=== PATIENT | female | born 1950 | race Caucasian/White ===

== ENCOUNTER 2019-07-29 02:25 | Outpatient (CLI) | payer OTHER, SELFPAY ==
--- NOTE | 2019-07-29 08:15 | DI.MAMMO_ITS ---
EXAM: MAMMO SCREENING CLINICAL HISTORY: SCREENING, Z12.31,REF#[id number] TECHNIQUE: Mammograms were interpreted according to the usual protocol including computer analysis w [employer] CAD system, tomosynthesis and C-view imaging. FINDINGS: The breasts are of moderate density with fairly symmetrical distribution of fibroglandular tissue. N o dominant mass or clumped microcalcification is identified in either breast. There are dermal calci fications of the medial aspect of the right breast seen on MLO view. Examination is compared with pr evious examinations including August 2017 and there been no gross interval change in appearance in comparison with the previous studies. IMPRESSION: No specific evidence of malignancy at this time. Routine screening examinations are suggested at year ly intervals in this age group according to the ACS ACR guidelines. Category 1. Breast density, categ ory B. BI-RADS Cat 1 - Negative. Breast Density - Category B - Scattered areas of fibroglandular density.
== END 2019-07-29 02:45 ==
PROVIDERS: PCP Internal Medicine; Visit Provider Internal Medicine
DX: Z12.31 Encounter for screening mammogram for malignant neoplasm of breast (principal)
CPT/HCPCS: 77063; 77067

== ENCOUNTER 2021-10-15 01:03 | Outpatient (CLI) | payer OTHER, SELFPAY ==
--- NOTE | 2021-10-15 08:55 | DI.MAMMO_ITS ---
Exam(s) MAMMO SCREENING EXAM: MAMMO SCREENING CLINICAL HISTORY: SCREENING, Z12.39,[id number] TECHNIQUE: Mammograms were interpreted according to the usual protocol including computer analysis w [employer] CAD system, tomosynthesis and C-view imaging. COMPARISON: 2013 through 2019 FINDINGS: The breasts are composed of scattered fibroglandular densities, Breast Density category B. No suspicious masses or suspicious microcalcifications are seen. No skin thickening or abnormal axillary lymph nodes are seen. There has been no significant change from prior exams. IMPRESSION: BI-RADS Category 1, Negative mammogram Yearly screening mammography is recommended. Breast Density - Category B, scattered fibroglandular densities. A negative radiographic report should not delay biopsy if a dominant or clinically suspicious mass is present. Up to ten percent of cancers are not identified on mammography. A negative report may reinforce clinical impression. Adenosis and dense breasts may obscure an underlying neoplasm. False positive reports average 6 to 10%. Patient will receive a letter notifying them of these results.
== END 2021-10-15 01:23 ==
PROVIDERS: PCP Internal Medicine; Visit Provider Internal Medicine
DX: Z12.31 Encounter for screening mammogram for malignant neoplasm of breast (principal)
CPT/HCPCS: 77063; 77067

== ENCOUNTER 2022-06-11 14:10 | Emergency (ER) | payer OTHER, SELFPAY ==
[2022-06-11 14:14] VITALS: BP 178/90; PULSE 85; RESP 14; TEMP 36.7; O2SAT 98
--- NOTE | 2022-06-11 14:30 | DI.MRI_ITS ---
Exam(s) MR BRAIN WO EXAM: MR BRAIN WO CLINICAL HISTORY: diplopia TECHNIQUE: Multiplanar multisequence MRI of the brain was performed. COMPARISON: No exams were available for comparison FINDINGS: VENTRICLES AND EXTRA AXIAL SPACES: Normal in size and morphology for the patient's age. There is mild cerebral atrophy. MIDLINE SHIFT: None. CEREBRAL PARENCHYMA: No focus of restricted diffusion to suggest acute infarct. No space-occupying le zane identified. HEMORRHAGE: None. BRAINSTEM/CEREBELLUM: Normal. CALVARIUM: Normal. VISUALIZED PARANASAL SINUSES/MASTOIDS:Clear. [place]: Normal flow void. PITUITARY GLAND: Unremarkable. OTHER FINDINGS: None. IMPRESSION: 1. No acute intracranial process. 2. Findings were discussed with the emergency department at 4:12 p.m. on 06/11/2022. DATA REPOSITORY:
--- NOTE | 2022-06-11 15:40 | ED.GENADUL_ITS ---
Discharge Plan Disposition Patient Disposition: Home Condition: Stable Discharge Details Clinical Impression: Vision changes Primary Care Provider: Jenifer Caban ED Provider: Helene Herrera Home Meds and New Rx's Prescriptions: Continued omeprazole 20 MG capsule,delayed release(DR/EC) 20 mg PO DAILY atenolol 25 MG tablet 25 mg PO DAILY losartan 25 MG tablet 25 mg PO QAM Discharge Instructions Additional Instructions: Please follow-up with [facility] tomorrow Do not recommend driving until you are fully evaluated by ophthalmology Please return earlier should you have new or worsening complaints Please call your doctor tomorrow for follow-up as well Referrals: Jenifer Caban [Primary Care Provider] - Discharge Data Discharge Date/Time-TO BE ENTERED AT DEPARTURE: 06/11/22 16:25 Medical Decision Making <TIMOTHY Madera - Last Filed: 06/18/22 21:33> Pupils are equal round reactive to light and accommodation, her exam is benign, she has a nonfocal neurological exam overall That her with steady gait and is asymptomatic in terms of diplopia at time of my assessment She has not followed up with ophthalmology regarding this finding We talked about ordering an MRI with close outpatient reassessment with [facility], I suspect her symptoms are muscular in nature and she will need a follow-up for multiple exam, she will be placed on follow-up list for tomorrow if her MRI is within normal limits, care will be transitioned to physician monica Herrera pending MRI interpretation by radiology Medical Records Medical records reviewed: Yes I reviewed the patient's medical records. Lab Data Lab results reviewed: Yes I reviewed the patient's lab results. <Helene Herrera NP - Last Filed: 06/11/22 16:52> Sign Out No HPI <TIMOTHY Madera - Last Filed: 06/18/22 21:33> General Date/Time Provider Initiated Documentation: 06/11/22 14:16 . HPI Narrative: This 72-year-old female presents with report of double vision. She states her symptoms started yesterday. Predominantly while driving. She is unsure of whether or not its directional or an all ray on field admission. She denies a current headache. She denies any nausea or vomiting. She denies any loss of vision. She does see ophthalmology at the [place]. She denies any recent head or neck injuries. She states that she has some slightly blurred vision at this time and that it is improved if she covers the contralateral eye. She denies history of similar symptoms in the past. She denies any strength, sensation, weakness to her extremities. Related Data Home Medications Medication Instructions Recorded Confirmed atenolol 25 mg tablet 25 mg PO DAILY 06/08/13 06/08/13 losartan 25 mg tablet 25 mg PO QAM 06/08/13 06/08/13 omeprazole 20 mg capsule,delayed 20 mg PO DAILY 06/08/13 06/08/13 release Allergies Allergy/AdvReac Type Severity Reaction Status Date / Time Iodinated Contrast Media Allergy Intermediate Hives Unverified 06/08/13 15:04 General Stated Complaint: EyeProblem CARLOS: 3 Review of Systems <TIMOTHY Madera - Last Filed: 06/18/22 21:33> All systems reviewed & are unremarkable except as noted in HPI and below PFSH <TIMOTHY Madera - Last Filed: 06/18/22 21:33> All Active Problems (Updated 06/11/22 @ 15:46 by TIMOTHY Madera) Vision changes (Acute) Social History Smoking/Tobacco Use Status: Former Tobacco Use Smoking risk assessment performed?: Yes Drug use: Never Do you feel safe at home: Yes Exam <TIMOTHY Madera - Last Filed: 06/18/22 21:33> Const General: cooperative, comfortable and no acute distress Orientation: alert and oriented x3 HENMT Head: normal to inspection Eyes Periorbital: periorbital findings normal Eyelids: eyelids normal Sclera: sclerae normal Pupils: PERRL, pupils equal, not dilated, not fixed and reactive EOM: EOM intact bilaterally Direct ophthalmoscopy: anterior chamber normal Neck Other: no carotid bruit Resp Effort & Inspection: normal respiratory effort Cardio Rate: regular rate Rhythm: regular rhythm GI Inspection: normal to inspection Skin General skin exam: no rashes or lesions noted Neuro General: patient alert and patient oriented x3 Cranial Nerves: CN's II-XI intact bilaterally and tongue midline Cognition: normal cognition Speech: speech normal Gait: normal gait Sensory Exam: no sensory deficits noted Other: Negative [id number], negative heel miller, negative pronator drift Extrem General: normal to inspection Course <TIMOTHY Madera - Last Filed: 06/18/22 21:33> Vital Signs Vital signs: Vital Signs Temperature 36.7 C 06/11/22 14:14 Pulse 85 06/11/22 14:14 Respiratory Rate 14 06/11/22 14:14 Blood Pressure 178/90 H 06/11/22 14:14 Pulse Oximetry 98 06/11/22 14:14 Temperature 36.7 C 06/11/22 14:14 Temperature Source Oral 06/11/22 14:14 Pulse 85 06/11/22 14:14 Respiratory Rate 14 06/11/22 14:14 Respiratory Effort Non-Labored 06/11/22 14:55 Blood Pressure 178/90 H 06/11/22 14:14 Pulse Oximetry 98 06/11/22 14:14 Oxygen Delivery Method Room Air 06/11/22 14:14 Oxygen Flow Rate 0 06/11/22 14:14 Sign Out <TIMOTHY Madera - Last Filed: 06/18/22 21:33> Sign Out Data: Sign Out Comment: pending MRI Last updated by Jenifer Lopez PA at 06/11/22 16:12
--- NOTE | 2022-06-11 15:48 | NUR.NOTE ---
Nursing Note: Referral faxed to [facility] for tomorrow diplopia
[2022-06-11 16:19] VITALS: BP 154/84; PULSE 79; RESP 16; O2SAT 99
== END 2022-06-11 16:25 | disposition home or self-care (01) ==
PROVIDERS: Emergency Provider Nurse Practitioner Acute Care; PCP Internal Medicine
DX: H53.8 Other visual disturbances (principal); Z87.891 Personal history of nicotine dependence
CPT/HCPCS: 99284; 70551; 99282

== ENCOUNTER 2022-07-04 02:48 | Outpatient (CLI) | payer OTHER, SELFPAY ==
[2022-07-04 12:24] LABS: Abs Immature Grans 0.01 10^3/uL (0.0-0.06); Absolute Basophil Count 0.09 10^3/uL (0.0-0.2); Absolute Eosinophil Count 0.14 10^3/uL (0.0-0.7); Absolute Lymphocyte Count 1.23 10^3/uL (1.2-3.4); Absolute Monocyte Count 0.44 10^3/uL (0.1-0.8); Absolute Neutrophil Count 4.14 10^3/uL (1.2-6.7); Basophils % 1.5; Eosinophils % 2.3; HCT 41.8 % (36.0-46.0); HGB 13.8 g/dL (11.2-15.7); Immature Grans % 0.2; Lymphocytes % 20.3; MCH 30.3 pg (27.0-33.0); MCV 92 fL (80-95); MPV 10.5 fL (8.0-11.0); Monocytes % 7.3; Neutrophils % 68.4; Platelet Count 274 10^3/uL (130-400); RBC 4.55 10^6/uL (3.93-5.22); RDW 12.2 % (11.7-14.6); RDW-SD 41.5 fL; WBC 6.05 10^3/uL (4.4-10.8)
[2022-07-04 12:45] LABS: TSH (W/Ref FT4) 2.71 uIU/mL (0.36-3.74)
== END 2022-07-04 02:49 | disposition home or self-care (01) ==
LOC: LOS 02:49
PROVIDERS: PCP Internal Medicine; Visit Provider Optometrist
DX: H53.2 Diplopia (principal)
CPT/HCPCS: 36415; 83519; 84443; 85025

== ENCOUNTER 2022-10-16 00:54 | Outpatient (CLI) | payer MEDICARE, OTHER, SELFPAY ==
--- NOTE | 2022-10-16 07:00 | DI.MAMMO_ITS ---
Exam(s) MAMMO SCREENING EXAM: MAMMO SCREENING CLINICAL HISTORY: screening,z12.39 TECHNIQUE: Bilateral full field digital CC and MLO mammographic images were obtained with 3D tomosyn thesis and utilizing computer aided detection (CAD). COMPARISON: Available for comparison. FINDINGS: Masses/Architectural Distortion: None seen. Microcalcifications: No suspicious pleomorphic-type are seen. Skin Thickening/Nipple Retraction: None. IMPRESSION: 1. No significant interval change with no specific features of malignancy noted. 2. Unless there is more urgent need, screening mammography is recommended, as per [place] [employer] guidelines. BI-RADS Category 1 - Negative Breast Density - Category B - Scattered areas of fibroglandular density Breast density category C or D implies that the patient has dense breast tissue. Dense breast tissue is very common and is not abnormal but dense breast tissue can make it harder to find cancer on a ma mmogram. Also, dense breast tissue may increase their breast cancer risk. This information about the result of the mammogram report was provided to the patient to raise their awareness. Use this report when you speak with the patient about their risks for breast cancer, which includes their family hist ory. At that time, you may recommend for more screening tests (Ultrasound or MRI) as they might be us eful based on their risk. A negative radiographic report should not delay biopsy if a dominant or clinically suspicious mass is present. Up to ten percent of cancers are not identified on mammography. A negative report may reinforce clinical impression. Adenosis and dense breasts may obscure an underlying neoplasm. False positive reports average 6 to 10%. Patient will receive a letter notifying them of these results.
== END 2022-10-16 01:14 ==
LOC: DI 00:55
PROVIDERS: PCP Nurse Practitioner Family; Visit Provider Nurse Practitioner Family
DX: Z12.31 Encounter for screening mammogram for malignant neoplasm of breast (principal)
CPT/HCPCS: 77063; 77067

== ENCOUNTER → 2023-10-20 01:22 | Outpatient (CLI) | payer MEDICARE, OTHER, SELFPAY ==
--- NOTE | 2023-10-20 06:45 | DI.MAMMO_ITS ---
Exam(s) MAMMO SCREENING EXAM: MAMMO SCREENING CLINICAL HISTORY: screening,Z12.39 TECHNIQUE: Bilateral full field digital CC and MLO mammographic images were obtained with 3D tomosyn thesis and utilizing computer aided detection (CAD). COMPARISON: Available for comparison. FINDINGS: Masses/Architectural Distortion: None seen. Microcalcifications: No suspicious pleomorphic-type are seen. Skin Thickening/Nipple Retraction: None. IMPRESSION: 1. No significant interval change with no specific features of malignancy noted. 2. Unless there is more urgent need, screening mammography is recommended, as per [place] [employer] guidelines. BI-RADS Category 1 - Negative Breast Density - Category B - Scattered areas of fibroglandular density Breast density category C or D implies that the patient has dense breast tissue. Dense breast tissue is very common and is not abnormal but dense breast tissue can make it harder to find cancer on a ma mmogram. Also, dense breast tissue may increase their breast cancer risk. This information about the result of the mammogram report was provided to the patient to raise their awareness. Use this report when you speak with the patient about their risks for breast cancer, which includes their family hist ory. At that time, you may recommend for more screening tests (Ultrasound or MRI) as they might be us eful based on their risk. A negative radiographic report should not delay biopsy if a dominant or clinically suspicious mass is present. Up to ten percent of cancers are not identified on mammography. A negative report may reinforce clinical impression. Adenosis and dense breasts may obscure an underlying neoplasm. False positive reports average 6 to 10%. Patient will receive a letter notifying them of these results.
== END ==
PROVIDERS: PCP Nurse Practitioner Family; Visit Provider Nurse Practitioner Family
DX: Z12.31 Encounter for screening mammogram for malignant neoplasm of breast (principal)
CPT/HCPCS: 77063; 77067

== ENCOUNTER 2024-06-10 10:24 | Outpatient (CLI) | payer OTHER, SELFPAY ==
--- NOTE | 2024-06-10 08:00 | DI.RAD_ITS ---
Exam(s) XR HIP RT COMPLETE AP PELVIS EXAM: XR HIP RT COMPLETE AP PELVIS CLINICAL HISTORY: hip pain. TECHNIQUE: 2D digital imaging was performed. Two views COMPARISON: No exams were available for comparison FINDINGS: BONES: No acute fracture is present. No bony destructive lesion is seen. Enthesophytes at the iliac wings. JOINTS: Left hip prosthesis show satisfactory alignment. No abnormal surrounding bony lucencies. Mo derate to severe narrowing of the right hip joint space. There is spurring at the acetabulum. There are mild degenerative changes of the SI joints and pubic symphysis. Advanced degenerative changes n oted in the lower lumbar spine. SOFT TISSUE: Normal. IMPRESSION: Moderate to severe degenerative changes of the right hip. Unremarkable left hip prosthesis. DATA REPOSITORY: RADIATION DOSE DELIVERED:
== END 2024-06-10 10:25 | disposition home or self-care (01) ==
LOC: DIORS 10:24
PROVIDERS: PCP Nurse Practitioner Family; Visit Provider Physician Assistant
DX: M16.11 Unilateral primary osteoarthritis, right hip (principal)
CPT/HCPCS: 73502

== ENCOUNTER 2024-07-12 02:23 | Outpatient (CLI) | payer MEDICARE, OTHER, SELFPAY ==
[2024-07-12 15:38] LABS: HCT 41.4 % (36.0-46.0); HGB 13.5 g/dL (11.2-15.7); MCH 29.7 pg (27.0-33.0); MCHC 32.6 % (32.0-36.0); MCV 91 fL (80-95); MPV 9.5 fL (8.0-11.0); Platelet Count 251 10^3/uL (130-400); RBC 4.55 10^6/uL (3.93-5.22); RDW 12.7 % (11.7-14.6)
[2024-07-12 16:31] LABS: Anion Gap 5.2 mmol/L (3-11); BUN 20 mg/dL (7-18); CO2 29.8 mmol/L (21.0-32.0); CREATININE 0.9 mg/dL (0.55-1.02); Chloride 105 mmol/L (98-107); Estimated GFR 67.08 (mL/min/1.73m2); Glucose 89 mg/dL (74-106); Potassium 3.9 mmol/L (3.5-5.1); Sodium 140 mmol/L (136-145)
== END 2024-07-12 02:24 | disposition home or self-care (01) ==
LOC: LBO 02:23
PROVIDERS: PCP Nurse Practitioner Family; Visit Provider Student in an Organized Health Care Education/Training Program
DX: M16.11 Unilateral primary osteoarthritis, right hip (principal); Z01.818 Encounter for other preprocedural examination
CPT/HCPCS: 36415; 80048; 85027

== ENCOUNTER 2024-07-27 07:51 | Day surgery (SDC) | payer OTHER, SELFPAY ==
[2024-07-27] VITALS (31 sets, daily range): BP systolic 81–141; BP diastolic 43–88; PULSE 43–69; RESP 8–19; TEMP 36–37.1; O2SAT 93–100; BMI 31.4
--- NOTE | 2024-07-27 08:25 | W.ANESPRE ---
General Info Date of Service Date Performed: 07/27/24 Height: 5 ft 7 in Weight: 91.172 kg Body Mass Index (BMI): 31.4 Surgical Procedure: Operation Date: 07/27/24 11:05 Proposed Procedure Side Surgeon p Hip Total Hip Anterior, ACTIS Right Amadeo Macdonald MD Meds Allergies and Home Medications Allergies Allergy/AdvReac Type Severity Reaction Status Date / Time Iodinated Contrast Media Allergy Intermediate Hives Verified 07/27/24 08:49 diclofenac AdvReac Unknown Diarrhea Verified 07/27/24 08:49 mirabegron AdvReac Unknown Unknown Verified 07/27/24 08:49 chlorthalidone AdvReac Unknown Verified 07/27/24 08:49 Home Medication ?Medication ?Instructions ?Recorded omeprazole 20 mg capsule,delayed 20 mg PO DAILY 06/08/13 release amlodipine 5 mg tablet 5 mg PO DAILY 07/12/22 valsartan 320 mg tablet 320 mg PO DAILY 07/12/22 lidocaine 5 % topical patch 1 patch topical DAILY 08/07/22 metronidazole 0.75 % topical gel 1 applic topical DAILY 08/07/22 multivitamin 1 tab PO DAILY 08/07/22 atenolol 100 mg tablet 100 mg PO BID 09/09/22 atorvastatin 10 mg tablet 20 mg PO DAILY 09/09/22 calcium carbonate 600 mg PO DAILY 09/09/22 carboxymethylcellulose sodium 0.5 1 drp ophthalmic (eye) BID 09/09/22 % eye drops (Refresh Tears) Current Visit Medications: Current Medications Generic Name Dose Route Start Last Admin Trade Name Freq PRN Reason Stop Dose Admin Acetaminophen 1,000 mg 07/27/24 06:00 Acetaminophen 500 Mg Tab PO 07/27/24 23:59 PREOP ANA Celecoxib 400 mg 07/27/24 06:00 Celecoxib 200 Mg Cap PO 07/27/24 23:59 PREOP ANA Cefazolin Sodium/Dextrose 2 gm in 50 mls @ 100 mls/hr 07/27/24 06:00 Ancef Duplex IVPB 07/27/24 23:59 PREOP ANA Tranexamic Acid/Sodium Chloride 1,000 mg in 100 mls @ 600 mls/hr 07/27/24 06:00 IVPB 07/27/24 23:59 PREOP ANA Ringer's Solution 1,000 mls @ 80 mls/hr 07/27/24 08:30 IV 08/26/24 08:29 INFUSION ANA IV Miscellaneous Supplies 1 each 07/27/24 06:00 Iv Access IV 07/27/24 23:59 DIRECTED ANA Sodium Chloride 0 ml 07/27/24 06:00 Normal Saline Flush 10 Ml Syr IV 07/27/24 23:59 PRN PRN Sodium Chloride 0 ml 07/27/24 06:00 Normal Saline 10 Ml Vial IJ 07/27/24 23:59 DIRECTED PRN Sterile Water 0 ml 07/27/24 06:00 Water,Injection,Sterile 10 Ml Vial IJ 07/27/24 23:59 DIRECTED PRN PFSH Active Problems Active Problems: Problem Status Onset Code Heart murmur Acute R01.1 Osteoarthritis of right hip Chronic M16.11 Hypertension Chronic I10 Osteoarthritis Chronic M19.90 Interstitial cystitis Chronic N30.10 Rosacea Chronic L71.9 Peripheral neuropathy Chronic G62.9 GERD (gastroesophageal reflux disease) Chronic K21.9 Obesity Chronic E66.9 Bilateral primary osteoarthritis of knee Chronic M17.0 Medical History Medical History (Updated 07/27/24 @ 08:45 by René Akins RN) Diplopia (~05/2022) 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 Side - resolved except for her smile Chronic low back pain SI (sacroiliac) joint dysfunction intraarticular injection: 05/22/23 Carpal tunnel syndrome, bilateral Parathyroid adenoma Primary hyperparathyroidism Surgical History Surgical History (Updated 07/27/24 @ 08:45 by René Akins RN) H/O radiofrequency ablation (RFA) of nerve of lumbar spine (10/24/22) H/O removal of cyst (04/2019) Right side mid-back H/O removal of neck cyst Status post left hip replacement (12/29/23) Status post right knee replacement (10/21/18) S/P parathyroidectomy (1995) Hx of colonoscopy Hx of appendectomy Tobacco Smoking/Tobacco Use Status: Former Tobacco Use Passive smoking exposure: Yes Second hand exposure: Yes Alcohol Alcohol Intake: never Substance Use Substance use: Never Substance use type: does not use Vital Signs and Lab Results Vital Signs Most Recent Vital Signs in EMR: Temp Pulse Resp BP Pulse Ox 37.1 C 69 16 141/79 H 100 07/27/24 08:41 07/27/24 08:41 07/27/24 08:41 07/27/24 08:41 07/27/24 08:41 Lab Results Blood Type / Crossmatch: No Data to Display Complete Blood Count: White Blood Count 7.40 10^3/uL (4.4-10.8) 07/12/24 15:29 Red Blood Count 4.55 10^6/uL (3.93-5.22) 07/12/24 15:29 Hemoglobin 13.5 g/dL (11.2-15.7) 07/12/24 15:29 Hematocrit 41.4 % (36.0-46.0) 07/12/24 15:29 Platelet Count 251 10^3/uL (130-400) 07/12/24 15:29 Complete Metabolic Panel: Sodium 140 mmol/L (136-145) 07/12/24 15:29 Potassium 3.9 mmol/L (3.5-5.1) 07/12/24 15:29 Chloride 105 mmol/L (98-107) 07/12/24 15:29 Carbon Dioxide 29.8 mmol/L (21.0-32.0) 07/12/24 15:29 BUN 20 mg/dL (7-18) H 07/12/24 15:29 Creatinine 0.9 mg/dL (0.55-1.02) 07/12/24 15:29 Est GFR (CKD-EPI 2020) 67.08 (mL/min/1.73m2) 07/12/24 15:29 Calcium 9.0 mg/dL (8.5-10.1) 07/12/24 15:29 Glucose 89 mg/dL (74-106) 07/12/24 15:29 Liver Function Panel: No Data to Display Coagulation Panel: No Data to Display Cardiac Panel: No Data to Display Arterial Blood Gas: No Data to Display Venous Blood Gas: No Data to Display Pancreas Panel: No Data to Display Thyroid Panel: No Data to Display Infectious Disease: No Data to Display Blood Cultures: No Data to Display Toxicology Panel: No Data to Display Imaging and Studies Imaging and Studies Study information below may be from another EMR and interpreted by another provider. Please see original notes in EMR for more complete details. Echocardiogram Summary: echocardiogram from 01/25/2019 which as per read by Dr. Newton which states the following: Left ventricular systolic function is normal. Visually estimated ejection fraction equals 65%. Mitral valve is normal...Trace mitral regurgitation...Trace tricuspid regurgitation...Aortic valve is tricuspid... Mild aortic valve thickening... Mild aortic regurgitation Anesthesia Assessment and Plan Anesthesia History Personal History: Delayed Emergence Family History: No Family History of Anesthesia Complications Exercise Tolerance Exercise Tolerance: Metabolic Equivalents<4 Pertinent Negatives Pertinent Negatives: No Symptoms of GERD, No Major Cardiovascular Symptoms or Complaints, No Major Pulmonary Symptoms or Complaints and No History of CVA/TIA Cardiac & Pulmonary Exam Cardiac Exam: Normal S1/S2 Heart Sounds Pulmonary Exam: Clear Bilateral Breath Sounds Implantable Cardiac Device Does patient have a Pacemaker or an ICD?: No Airway Exam Known Difficult Airway: No Mallampati Class: 2 Mouth Opening: Normal (> 3cm) Thyromental Distance: Greater than 3 cm Neck Range of Motion: Full ROM Neck Circumference: Normal Teeth Condition: Normal Dentition ASA Classification ASA Score: ASA 3 Emergency Case?: No NPO Status NPO Status: NPO Clears >2 hours, Solids >8 hours Anesthesia Plan Resuscitation Status: Full Code Anesthesia Technique: Spinal Anesthesia Airway Planned: Natural Airway Monitors Used: Standard Monitors Preoperative Comments:: Previous total joints at [place], spinal with other hip in December 2023. Patient prefers spinal over general.
--- NOTE | 2024-07-27 08:45 | DI.RAD_ITS ---
Exam(s) XR HIP RT IN OR EXAM: XR HIP RT IN OR CLINICAL HISTORY: Ostheoarthritis Right Hip TECHNIQUE: 2D and realtime digital imaging was performed. CONTRAST MATERIAL: Refer to procedure report. COMPARISON: CR XR HIP RT COMPLETE AP PELVIS from 06/10/2024 FINDINGS: Fluoroscopy was provided for Dr. Macdonald during the performance of a right total hip arthroplasty. Please refer to the procedure report for complete details. Ka,r=3.04 mGy IMPRESSION: RADIATION DOSE DELIVERED: 0.0 0.0 0
[2024-07-27] MEDS: Acetaminophen 500 MG TAB 1000 MG PO (08:59)
[2024-07-27] MEDS: Celecoxib 200 MG CAP 400 MG PO (08:59)
[2024-07-27] MEDS: Lactated Ringers 1,000 ML 80 ML IV (09:13)
--- NOTE | 2024-07-27 10:22 | PDOC.DSDIS_ITS ---
Date of service: 07/27/24 Discharge Plan Disposition Patient Disposition: Home Condition: Good Discharge Details Reason For Visit: Right hip DJD Attending Provider: Amadeo Macdonald Primary Care Provider: Maria R Rodriguez Home Meds and New Rx's Prescriptions: New dexamethasone 4 mg tablet 4 mg PO DAILY Qty: 2 0RF Rx Instructions: Take one tablet once daily for two days oxycodone 5 mg tablet 5 mg PO Q6H PRNQty: 12 0RF Rx Instructions: Take one tablet up to every 6 hours as needed for severe postoperative pain aspirin 81 mg tablet,delayed release (DR/EC) 81 mg PO BID Qty: 60 0RF ibuprofen 600 mg tablet 600 mg PO TID PRN (Reason: pain) Qty: 90 3RF acetaminophen 500 mg tablet 1,000 mg PO Q8H PRN (Reason: pain) Qty: 90 3RF Continued carboxymethylcellulose sodium [Refresh Tears] 0.5 % drops 1 drp ophthalmic (eye) BID calcium carbonate 600 mg calcium (1,500 mg) tablet 600 mg PO DAILY atenolol 100 mg tablet 100 mg PO BID valsartan 320 mg tablet 320 mg PO DAILY amlodipine 5 mg tablet 5 mg PO DAILY multivitamin Tablet 1 tab PO DAILY metronidazole 0.75 % gel 1 applic topical DAILY lidocaine 5 % adhesive patch,medicated 1 patch topical DAILY Rx Instructions: leave on most painful area for up to 12 hrs atorvastatin 10 mg tablet 20 mg PO DAILY omeprazole 20 MG capsule,delayed release(DR/EC) 20 mg PO DAILY Discharge Instructions Additional Instructions: Total Hip Discharge Instructions Activity: The most important activity is to walk. You should try to take short walks a few times a day. You have no restrictions on movement or positioning, but do not try to force what you do. You will find some stiffness and weakness with hip flexion (lifting your knee). Do not try to strengthen this too early, continue to practice walking and stairs and this will come. - Outpatient physical therapy can be helpful to help return you to a normal gait and improve your flexibility and strength. This can start around 2 weeks. For some patients, it?s not necessary. Usually this is determined at the time of discharge or at the first post-operative visit. - You should wear the EUGENE hose on both legs for 2 weeks. Dressing: Keep the surgical dressing in place for at least one week. After the first week it may be removed and replace with light gauze and tape or nothing. It may get wet after 3 days but avoid soaking the dressing. If it gets wet, just lightly pat dry. It is important to always keep some gauze between skin folds, especially when you are sitting. Spend some time with the wound exposed when you are lying flat as the incision does wrinkle onto itself. Medications: - You should take Tylenol and an anti-inflammatory Ibuprofen as your primary pain control medications. - You have been prescribed a stronger pain medication Oxycodone for breakthrough pain, take as needed as prescribed. - You will continue your home Omeprazole to help reduce stomach acid and reflux. - You have also been prescribed Decadron to help with post-operative nausea and pain. You will take this for two days starting tomorrow. - You will be taking Aspirin 81mg twice a day for DVT prevention unless instructed otherwise. - If you have constipation you should take Colace or Miralax (both [id number]). It takes most people 3-4 days to have a bowel movement. Follow-up: 2 weeks If you have any acute concerns or questions, please do not hesitate to contact the office at [phone]. You may contact Dr. Macdonald with any questions after hours through the hospital at [phone] or on his cell phone at [phone]. Stand Alone Forms: Anesthesia Discharge Inst., Dylan Castañeda ([facility]) Referrals: Amadeo Macdonald MD [ [facility] STAFF PHYSICIAN] - 08/09/24 11:15 am Equipment/Supplies: Walker Activity:: Elevate Remove Dressings/Wound Care:: Do Not Remove Shower/Bathe:: Cover Diet:: As Tolerated Discharge Orders Discharge Orders: Discharge Order (Routine); Ordered 07/27/24 Ordered By: Callie Palacios
[2024-07-27] MEDS: ceFAZolin 2 GM/50 ML BAG IVPB (10:43)
--- NOTE | 2024-07-27 10:59 | W.PM.OP ---
Operative Note Operative Note PRE-OP DIAGNOSIS: Right Hip Osteoarthritis POST-OP DIAGNOSIS: same PROCEDURE: Right Anterior Total Hip Arthroplasty with Intraoperative Navigation SURGEON: Amadeo Macdonald UNDERGROUND SUPERVISOR: Callie Palacios ANESTHESIA TYPE: Spinal Refer to Anesthesia Record ESTIMATED BLOOD LOSS: 350 PATHOLOGY: none sent TOURNIQUET TIME: 0 COMPLICATIONS: None Patient was transported to: PACU Patient's condition: stable Implants: 1. Depuy [place] Acetabular Component, 54mm 2. Depuy Acetabular Liner, [id number] 3. Depuy Actis High Offset Collared Femoral Stem, Size 7 4. Depuy Altrx Ceramic Femoral Head, Size 36+1.5mm Indications: I have seen Amaris in clinic for symptoms of hip arthritis, confirmed with radiographic findings. She has exhausted nonoperative methods and was having significant limitations in daily function and desired better function and less pain. I discussed the technical details of a hip replacement. She had a successful hip replacement on the left side performed at the [facility]. I explained the risks of the procedure to include, but not limited to, bleeding, infection, pain, stiffness, fracture, damage to nerves and vessels, damage to muscles and tendons, loosening, instability, leg length inequality, need for repeat procedure, blood clot and cardiopulmonary demise. Despite these risks, Amaris elected to proceed. Findings: There was significant signs of arthritis throughout the hip. There was also a very large labrum which had complex, displaced tearing. Procedure Description: Amaris was greeted in the preoperative holding area where the correct side was identified and marked. The consent was reviewed with the patient and signed. The history and physical was updated. All questions were answered. She was taken back to the operating room. A spinal anesthestic was then administered. The feet were wrapped with cast padding and Coban and then placed into the boot liners and then into the boots. Care was taken to protect the skin and make sure the heels were fully down and the boots were stable. The patient was then positioned onto the HANA table. Both legs were held in a neutral position. SCDs were applied. The patient was then slid down onto a peroneal post. Prophylactic antibiotics in the form of Cefazolin were administered. 1g of Tranxemic Acid was given intravenously within 30 minutes of incision. The right leg was then prepped with Chloraprep and draped in a standard fashion. A second prep with Chloraprep was performed prior to placement of a shower-curtain type drape with Iodine impregnated skin protection. A timeout to confirm correct identity, side and site, procedure, allergies, anesthesia, and medical concerns was performed. An obliquely oriented incision was made starting lateral to the ASIS and running distal over the Tensor Fascia Helga (TFL) muscle belly toward the fibular head, approximately 10cm. The skin and soft tissue was dissected sharply, through Roger?s fascia, and to the fascia of the TFL. With the fascia and superior border of the IT band identified, the fascia was incised with a new knife just above any perforators from the IT band. The TFL muscle belly was bluntly dissected away from the fascia and moved laterally. The fat between TFL and rectus was identified to ensure the dissection was not within the TFL. Blunt dissection created space between abductors and the capsule and retractor was placed over the lateral femoral neck. The fibers of the rectus femoris tendon were identified and these were freed from the anterior capsule. A second cobra retractor was placed around the medial femoral neck. The TFL was further retracted laterally to show the deep fascia. Careful dissection through this layer identified three main crossing vessels of the lateral femoral circumflex. These were cauterized in multiple locations and then cut without any noticeable bleeding. The TFL was further released bluntly from the deep fascia to expose anterior hip capsule and fat The soft tissue orthopaedic retractor was then placed beneath the TFL and against sartorius and medial soft tissues to protect and retract the soft tissues. A T-capsulotomy was then performed starting at the superior lateral acetabulum and moving distally to the intertrochanteric ridge. These capsular flaps were tagged with a No. 1 Ethibond and elevated from within. The capsular flaps were released to the shoulder of the lateral neck and to the lesser trochanter to give excellent visualization of the proximal femur. A neck osteotomy was performed using an oscillating saw based on preoperative templates. This cut started in the shoulder and of the lateral neck and exited medially. The saw was at all times directed medially to avoid injury to the greater trochanter. Gross traction was applied to the leg and the osteotomy opened. The femoral head was removed with a corkscrew, making sure to protect the TFL on its exit. Traction was released after head removal. This was measured on the back table to determine the starting reamer size. Portions of the rectus obscuring visualization were minimally elevated off the superior acetabulum. An anterior retractor was placed over the anterior wall between capsule and labrum and attached to the Gripper retraction system. The labrum was quite large and the superior portion was torn in and displaced. The femur was rotated to 90 degrees and medial capsule was fully released until the lesser trochanter was palpable and visible; the femur was returned to 30 degrees. A posterior retractor was placed similarly between capsule and labrum. This provided excellent visualization. The contents of the cotyloid fossa were removed with electrocautery and the labrum was removed with a knife. There was a notable floor osteophyte. There was significant chondromalacia of the superior acetabulum. Acetabular reaming began with a 50mm reamer. This first reaming was directed anterior to posterior and medial to get down to the true floor. This was inspected and reamed until the true floor was reached. The anterior retractor was then released and entry and exit was provided by traction on the capsular flaps. I then reamed sequentially up to a 54mm reamer where good fit was obtained. The larger reamers were oriented based on anatomical reference of the anterior and lateral santos to ensure proper abduction and anteversion. Positioning and size was confirmed with the fluoroscopy. A 54mm Depuy [place] acetabular component was selected. The acetabulum was reamed around the periphery with the selected acetabular size to prevent a rim fit. The deep tissues were irrigated. The acetabular component was then impacted in a position of about 40-45 degrees of abduction and 15-20 degrees of anteversion, using the patient?s anatomy as the ultimate landmark. Fluoroscopy was used to confirm this. There was excellent neurodiagnostic technologist of the acetabular component and the inserting handle was removed. The acetabular liner, Depuy [id number] polyethylene liner, was inserted and lined up with the tines of the acetabular component. There was no soft tissue interposition. The liner was then impacted into position and confirmed to be well-seated. A portion of the chuyita-articular cocktail was then injected around the acetabulum into the capsule and periosteum. This cocktail consisted of 123mg of Ropivacaine, 0.25mg of Epinephrine, 0.04mg of Clonidine, and 15mg of Ketorolac, diluted to 50cc. The leg was rotated to 120 degrees. Any remaining medial capsule was released until the lesser trochanter was easily palpable. A retractor was placed medially. The lateral capsule was further released into the shoulder to allow access to the greater trochanter. A Molina retractor was placed over the greater trochanter which allowed the trochanter to flip in front of the capsule for excellent exposure. The leg was brought down into maximal extension and 20 degrees of adduction while ensuring there was no impingement on the acetabulum. Any remnant capsule within the trochanter was released. Piriformis and obturator externis were identified and protected. There was excellent access to the proximal femur. The lateral neck remnant was removed with a rongeur. A blunt canal probe was used to identify the canal and trajectory for later broaching. A box osteotome initiated the broach course. A small curved rasp and a curved curette were used to work laterally. Broaching then began with a starter Actis broach. This was inserted manually around the trochanter and into the canal before mallet blows. The broach was seated to a few millimeters below the cut level based on the neck cut and the preoperative template. Sequential broaching was continued with the [employer] pneumatic broaching device until a tight fit was obtained with good rotational control of the femur. A trial high offset neck was inserted along with a +1.5 trial head. The leg was brought out of extension and adduction and then reduced with traction and internal rotation. The leg was stable anteriorly in a position of 30 degrees of extension and 90 degrees of external rotation. Fluoroscopy was used to ensure there was no fracture and the stem was seated well. Leg lengths were checked with an AP pelvis and pelvic reference points. [employer] navigation system was used to confirm appropriate positioning and leg length and offset. This overcorrected offset and thus the stem was advanced an additional 4mm. Once content with the desired offset and leg lengths, the leg was brought back into extension, external rotation and adduction. The periosteum and surrounding tissue was injected with remaining portion of the chuyita-articular cocktail. The proximal femur was irrigated as well as the deep tissues. The Depuy Actis High Offset collared stem, size 7, was then manually inserted into the proximal femur making sure to control rotation. It was then malleted into position with light blows, giving breaks to allow bone expansion and decrease risk of fracture. The selected Depuy Altrx Ceramic Head, size 36+5mm, was then placed onto the clean and dry trunnion and secured with impaction onto the tapered fit. The leg was brought back out of extension and adduction and reduced with traction and internal rotation. Stability was confirmed with no shuck at 90 degrees of external rotation and 30 degrees of extension. No impingement through range of motion arc. Final x-ray images were obtained with fluoroscopy to confirm adequate positioning and no intraoperative fracture. The deep tissues were thoroughly irrigated with Surgiphor, betadine solution. This was allowed to sit in the wound for 3 minutes before being thoroughly irrigated out with normal saline. The capsule was then reapproximated with the previously placed Ethibond sutures. The TFL fascia was finally closed with a No. 2 Stratafix, barbed suture. Deep tissues were then reapproximated with 0 Vicryl and a running 2-0 Vicryl. The skin was closed with a running 4-0 Monocryl in a subcuticular fashion. This was reinforced with skin glue. A Mepilex silver dressing was applied. At the end of the case, all counts were correct. Amaris was transferred to the hospital bed without difficulty and suffering no apparent complication. Amaris has a good prognosis. Physical therapy will start today and without restrictions, weight-bearing as tolerated. Aspirin 81mg BID will be used for DVT prophylaxis. Date of Procedure: 07/27/24
[2024-07-27] MEDS: TRANEXAMIC ACID/SOD. CHL. 1,000 MG/100 ML BAG 600 MG IVPB (11:05)
[2024-07-27] MEDS: fentaNYL 100 MCG/2 ML VIAL IVP ×3 (12:48→13:07)
--- NOTE | 2024-07-27 13:43 | W.ANESPOSTOP ---
Postoperative Evaluation Date, Time and Location Date Performed: 07/27/24 Time Performed: 13:43 Patient Location: Day Surgery Unit Vital Signs Most Recent Imported Vital Signs: Most Recent Vital Signs Temp Pulse Resp BP Pulse Ox 36 C L 54 L 16 115/66 97 07/27/24 13:21 07/27/24 13:21 07/27/24 13:21 07/27/24 13:21 07/27/24 13:21 Pain Score Most Recent Pain Score: Most Recent Pain Score Pain Level 0 07/27/24 13:21 Assessment Mental Status: Awake (Alert & Oriented to Patient Baseline) Airway and Respiratory Function: Patent airway with normal (patient baseline) respiratory exam Cardiovascular Function: Hemodynamically Stable Hydration Status: Adequately Hydrated Nausea & Vomiting: No Nausea or Vomiting Pain: Pain is tolerable per patient Peripheral Nerve Block: Patient did not receive a nerve block
--- NOTE | 2024-07-27 15:11 | PT.INIE ---
PT Notes Visit Reasons: Right hip DJD Physical Therapy Day Surgery Initial Evaluation Date: 07/27/2024 Referring Doctor: Dr. Torres Hyatt PT Orders: PT CONSULT: Status post Ortho surgery Precautions: WBAT RLE,TEDs x 2 weeks Patient Profile/Admitting Diagnosis: Patient is 74-year-old female presenting status post elective right NARENDRA under spinal anesthesia. Postop uncomplicated. PMHX: OA bilateral knees,heart murmur, hypertension, OA, interstitial cystitis, rosacea, peripheral neuropathy, GERD, obesity Social History/Home Situation: Patient resides alone single-family home with 2 steps with rail on left to enter home. Patient has laundry in her basement with railing on the left. Patient independent with ADLs, ambulation without device, homemaking, meal prep, medication management, shopping. Son will be present and provide assistance as needed initially on discharge Equipment Owned/DME: Multiple FWW, 3 sets of crutches, elevated toilet height, tub bench, grab bars near shower Subjective: Patient reports she feels well but is noticing she is forgetting some things that were just told to her . Stating it is a lot of information at 1 time. Objective: [] General Observation: Patient presents semireclined on stretcher with ice to right hip eating lunch: Son present patient agreeable to participate in evaluation Mental Status: Alert and oriented x 4, slight confusion/decreased short-term memory as noted by patient asking 3 times what medication she took Pain: 4/10 right hip after medicated ROM: [] Right Upper Extremity: Within normal limits Left Upper Extremity: Within normal limits Right Lower Extremity: Within normal limits Left Lower Extremity: Within normal limits Strength: Right Upper Extremity: [] 5/5 Left Upper Extremity: 5/5 Right Lower Extremity: Hip flexion: 3 -/5; hip abduction: 3 -/5; hip extension: 3 -/5; knee extension: 3/5; knee flexion: 3 -/5 ankle DF: 3/5 ; ankle PF: 3/5 Left Lower Extremity: Grossly 4/5 Sensation: Intact bilateral lower extremity Bed Mobility/Transfers: Supine to sit supervision Sit to stand supervision with cues for safe hand placement Stand to sit supervision with cues for safe hand placement Bed to chair supervision with cues for safe approach with FWW Gait: Ambulates with FWW with supervision 150 feet x 1,35 feet x 2 level surfaces including turns. Patient demonstrates hip hike and circumduction to advance right lower extremity. Patient demonstrates decreased right knee flexion. Early heel off and decreased hip extension Stairs: 3 steps with left railing ascending with contact-guard assist and cues for sequence. Balance: Static Sitting: Normal Dynamic Sitting: Good Static Standing: Good Dynamic Standing: Fair plus Special Tests: [] Mobility Limitations Standardized Measure [] [facility] AM-PAC 6 clicks Basic Mobility Inpatient Short Form: [] Raw Score: 22 CMS Score: 20.91% Informed Consent/Education: Patient instructed in purpose of PT consult. Packet containing NARENDRA exercise protocol has been given to patient. Education and training on initial set of exercises that can be done at home have been completed with patient. Treatment: Therapeutic activity 62213: Patient and son participated in stair training transfers of low surfaces with 1 armrest to simulate on and off couch within home patient demonstrate ability to perform tasks with supervision and cues for hand placement when FWW is directly in front of her. Son demonstrates ability to provide contact-guard assist on stairs with left railing ascending. Assessment: Patient is a 74-year-old female presents with clinical signs and symptoms consistent with current/admitting diagnoses that have resulted to mobility limitations, gait instability, generalized weakness, and impairment of motor control as demonstrated by the following impairment level findings: 1. Decreased strength to right hip major muscle groups 2. Impaired standing balance 3. Limitation of joint range of motion in right hip Impairments are contributing to the following functional limitations: 1. Inability to safely ambulate without assistive device 2. Increase completion time for mobility ADL performance 3. Increased fall risk Patient is assessed as a moderate complexity based on the following: History: 74-year-old female with impairment level findings, functional limitations, and past medical history as indicated above Examination: Demonstrable impairment in strength, balance, and mobility level with underlying impairments and functional limitations as documented above Presentation: Evolving Decision Making: Moderate Goals: N/A. Plan of Care/Treatment Plan: N/A. DISCHARGE RECOMMENDATIONS: Home with home exercise program and possible need for outpatient PT to be discussed after first follow-up with surgeon TREATMENT CODE/TIME: 63108 x 20 minutes for 1 unit, 76091 x 20 minutes for 1 unit/[id number] Thank you for the opportunity to participate in the care of this patient. Clementina Tucker PT [facility]
== END 2024-07-27 15:09 | disposition home or self-care (01) ==
PROVIDERS: PCP Nurse Practitioner Family; Visit Provider Student in an Organized Health Care Education/Training Program
PROC: (CPT 27130; principal; 2024-07-27 10:45)
DX: M16.11 Unilateral primary osteoarthritis, right hip (principal); I10 Essential (primary) hypertension; K21.9 Gastro-esophageal reflux disease without esophagitis; E66.9 Obesity, unspecified
CPT/HCPCS: 27130; 20985; 97162; 97530; 73501; C1776; J0690; J1100; J2250; J2371; J2401; J2405; J2704; J3010

== ENCOUNTER 2024-08-09 13:51 | Outpatient (CLI) | payer OTHER, SELFPAY ==
--- NOTE | 2024-08-09 11:30 | DI.RAD_ITS ---
Exam(s) XR HIP RT COMPLETE AP PELVIS EXAM: XR HIP RT COMPLETE AP PELVIS CLINICAL HISTORY: 1ST POST OP S/P R NARENDRA. TECHNIQUE: 2D digital imaging was performed. Two views COMPARISON: CR XR HIP RT COMPLETE AP PELVIS from 06/10/2024 XA XR HIP RT IN OR from 07/27/2024 FINDINGS: BONES: No acute fracture is present. No bony destructive lesion is seen. JOINTS: No dislocation present. Stable alignment of bilateral hip prostheses. SOFT TISSUE: Normal. IMPRESSION: Stable appearance of bilateral hip prostheses. DATA REPOSITORY: RADIATION DOSE DELIVERED:
== END 2024-08-09 13:52 | disposition home or self-care (01) ==
LOC: DIORS 13:52
PROVIDERS: PCP Nurse Practitioner Family; Visit Provider Student in an Organized Health Care Education/Training Program
DX: Z96.641 Presence of right artificial hip joint (principal); Z47.1 Aftercare following joint replacement surgery
CPT/HCPCS: 73502

== ENCOUNTER 2024-08-16 16:27 | Outpatient (CLI) | payer MEDICARE, OTHER, SELFPAY ==
--- NOTE | 2024-08-16 10:15 | DI.US_ITS ---
Exam(s) US SOFT TISS ABD WALL/LOW BACK EXAM: US SOFT TISS ABD WALL/LOW BACK CLINICAL HISTORY: abscess vs lipoma,LUMP SKIN OF BACK, R22.2. TECHNIQUE: Ultrasound was performed using standard protocol. COMPARISON: No exams were available for comparison FINDINGS: Sonographic assessment utilizing grayscale and color Doppler imaging was performed and targeted to th e area of clinical concern. There is a heterogeneous mass in the subcutaneous tissues along the right back in the area of palpabl e concern. It measures 2.8 cm x 1.8 cm x 2.7 cm. There is posterior acoustic enhancement. There is no internal blood flow. IMPRESSION: The of concern corresponds to a 2.8 x 1.8 x 2.7 cm heterogeneous mass in the subcutaneous tissues. T he increased through transmission can be seen with fluid containing structure such as an abscess rich alexandre some solid masses may also show this type of enhancement. CT scan should be considered for furth er evaluation. DATA REPOSITORY:
== END 2024-08-16 16:47 ==
PROVIDERS: PCP Nurse Practitioner Family; Visit Provider Nurse Practitioner Family
DX: R22.2 Localized swelling, mass and lump, trunk (principal)
CPT/HCPCS: 76705

== ENCOUNTER 2024-08-23 15:52 | Outpatient (REF) | payer MEDICARE, SELFPAY | END 2024-08-23 15:53 | disposition home or self-care (01) | LOC: LBN 15:52 | PROVIDERS: PCP Nurse Practitioner Family; Visit Provider Nurse Practitioner Family | DX: L02.91 Cutaneous abscess, unspecified (principal); L98.9 Disorder of the skin and subcutaneous tissue, unspecified | CPT/HCPCS: 87070; 87205 ==

== ENCOUNTER → 2024-08-24 08:46 | Outpatient (BNVA) | payer MEDICARE, OTHER, SELFPAY | PROVIDERS: PCP Nurse Practitioner Family; Referring Provider Nurse Practitioner Family; Visit Provider Physical Therapy Assistant | DX: L02.212 Cutaneous abscess of back [any part, except buttock and flank] (principal); Z87.2 Personal history of diseases of the skin and subcutaneous tissue | CPT/HCPCS: 10060; 99214 ==

== ENCOUNTER → 2024-08-25 11:28 | Outpatient (BNVA) | payer MEDICARE, SELFPAY | PROVIDERS: PCP Nurse Practitioner Family; Referring Provider Nurse Practitioner Family; Visit Provider Physical Therapy Assistant | DX: L02.212 Cutaneous abscess of back [any part, except buttock and flank] (principal) | CPT/HCPCS: 99213 ==

== ENCOUNTER → 2024-08-26 07:52 | Outpatient (BNVA) | payer MEDICARE, SELFPAY | PROVIDERS: PCP Nurse Practitioner Family; Referring Provider Nurse Practitioner Family; Visit Provider Physical Therapy Assistant | DX: Z48.817 Encounter for surgical aftercare following surgery on the skin and subcutaneous tissue (principal); L02.212 Cutaneous abscess of back [any part, except buttock and flank] ==

== ENCOUNTER → 2024-08-27 10:30 | Outpatient (BNVA) | payer MEDICARE, SELFPAY | PROVIDERS: PCP Nurse Practitioner Family; Referring Provider Nurse Practitioner Family; Visit Provider Physical Therapy Assistant | DX: Z48.817 Encounter for surgical aftercare following surgery on the skin and subcutaneous tissue (principal); L02.212 Cutaneous abscess of back [any part, except buttock and flank] ==

== ENCOUNTER → 2024-08-31 09:33 | Outpatient (BNVA) | payer MEDICARE, SELFPAY | PROVIDERS: PCP Nurse Practitioner Family; Referring Provider Nurse Practitioner Family; Visit Provider Physical Therapy Assistant | DX: Z48.817 Encounter for surgical aftercare following surgery on the skin and subcutaneous tissue (principal); L02.212 Cutaneous abscess of back [any part, except buttock and flank] ==

== ENCOUNTER → 2024-09-03 08:34 | Outpatient (BNVA) | payer MEDICARE, OTHER, SELFPAY | PROVIDERS: PCP Nurse Practitioner Family; Referring Provider Nurse Practitioner Family; Visit Provider Physical Therapy Assistant | DX: L02.212 Cutaneous abscess of back [any part, except buttock and flank] (principal) | CPT/HCPCS: 97605; 99213 ==

== ENCOUNTER → 2024-09-10 08:11 | Outpatient (BNVA) | payer MEDICARE, OTHER, SELFPAY | PROVIDERS: PCP Nurse Practitioner Family; Referring Provider Nurse Practitioner Family; Visit Provider Physical Therapy Assistant | DX: L02.212 Cutaneous abscess of back [any part, except buttock and flank] (principal) | CPT/HCPCS: 99213 ==

== ENCOUNTER → 2024-09-13 08:41 | Outpatient (BNVA) | payer MEDICARE, OTHER, SELFPAY | PROVIDERS: PCP Nurse Practitioner Family; Referring Provider Nurse Practitioner Family; Visit Provider Physical Therapy Assistant | DX: L02.212 Cutaneous abscess of back [any part, except buttock and flank] (principal) | CPT/HCPCS: 99212 ==

== ENCOUNTER → 2024-09-17 09:31 | Outpatient (BNVA) | payer MEDICARE, OTHER, SELFPAY | PROVIDERS: PCP Nurse Practitioner Family; Referring Provider Nurse Practitioner Family; Visit Provider Physical Therapy Assistant | DX: L02.212 Cutaneous abscess of back [any part, except buttock and flank] (principal) | CPT/HCPCS: 99213 ==

== ENCOUNTER 2024-09-28 00:47 | Outpatient (CLI) | payer MEDICARE, OTHER, SELFPAY ==
--- NOTE | 2024-09-28 10:45 | DI.MRI_ITS ---
Exam(s) MR LUMBAR SPINE WO EXAM: MR LUMBAR SPINE WO CLINICAL HISTORY: Spinal stenosis,lumbar,M48.061. TECHNIQUE: Multiplanar multisequence MRI of the Lumbar spine was performed. COMPARISON: No exams were available for comparison FINDINGS: Bones: The last intervertebral disc space is designated the L5/S1 level for the numbering purpose of this examination. The vertebral body heights are well maintained. There is a right convex scoliosis of the lumbar spine. There are mild degenerative endplate signal changes. Endplate osteophytes are seen at multiple levels of the lumbar spine. There is disc space narrowing from L1-2 through L5-S1. Cord: The conus tip ends at the T12 level. It is of normal size and signal intensity. T12-L1: No disc herniations or bulges are present. No central spinal canal or neural foraminal stenos is. L1-2: There is a mild diffuse disc bulge. No significant central spinal canal or right neural forami nal stenosis. There is mild left neural foraminal stenosis. L2-3: There is a diffuse disc bulge. Degenerative changes of the facets, left greater than right. N o significant central spinal canal stenosis is seen. There is moderate left and mild right neural fo raminal stenosis. L3-4: There is a diffuse disc bulge. There are degenerative changes of the facets. Mild narrowing o f the central spinal canal results. There is bilateral neural foraminal stenosis which is mild in de gree. L4-5: There is a diffuse disc bulge. Degenerative changes of the facets are seen. This does result in mild narrowing of the central spinal canal.There is mild bilateral neural foraminal stenosis. L5-S1: There is a diffuse disc bulge. There are degenerative changes of the facets. No significant central spinal canal stenosis is present. There is bilateral neural foraminal stenosis, left greater than right. Soft tissues: The visualized SI joints and sacrum are well maintained. The paraspinal soft tissues ar e unremarkable. Visualized abdominal organs: There is a small simple cyst in the right kidney. No follow-up is recom mended. IMPRESSION: 1. Right convex lumbar scoliosis and multilevel degenerative changes in the lumbar spine. 2. Findings do result in central spinal canal and neural foraminal stenosis as described above. DATA REPOSITORY:
== END 2024-09-28 01:07 ==
PROVIDERS: PCP Nurse Practitioner Family; Visit Provider Nurse Practitioner Family
DX: M48.061 Spinal stenosis, lumbar region without neurogenic claudication (principal)
CPT/HCPCS: 72148

== ENCOUNTER → 2024-10-15 10:13 | Outpatient (BNVA) | payer MEDICARE, OTHER, SELFPAY | PROVIDERS: PCP Nurse Practitioner Family; Referring Provider Nurse Practitioner Family; Visit Provider Physical Therapy Assistant | DX: L90.5 Scar conditions and fibrosis of skin (principal) | CPT/HCPCS: 99213 ==

== ENCOUNTER → 2024-10-22 10:37 | Outpatient (BNVA) | payer MEDICARE, OTHER, SELFPAY | PROVIDERS: PCP Nurse Practitioner Family; Referring Provider Nurse Practitioner Family; Visit Provider Physical Therapy Assistant | DX: L90.5 Scar conditions and fibrosis of skin (principal) | CPT/HCPCS: 11401 ==

== ENCOUNTER 2024-10-26 00:30 | Outpatient (CLI) | payer MEDICARE, OTHER, SELFPAY ==
--- NOTE | 2024-10-26 10:51 | DI.MAMMO_ITS ---
Exam(s) MAMMO SCREENING EXAM: MAMMO SCREENING CLINICAL HISTORY: screening,Z12.39 TECHNIQUE: Mammograms were interpreted according to the usual protocol including computer analysis w [employer] CAD system, tomosynthesis and C-view imaging. COMPARISON: 2015 through 2023 FINDINGS: The breasts are composed of scattered fibroglandular densities, Breast Density category B. No suspicious masses or suspicious microcalcifications are seen. No skin thickening or abnormal axillary lymph nodes are seen. There has been no significant change from prior exams. IMPRESSION: BI-RADS Category 1, Negative mammogram Yearly screening mammography is recommended. Breast Density - Category B, scattered fibroglandular densities. A negative radiographic report should not delay biopsy if a dominant or clinically suspicious mass is present. Up to ten percent of cancers are not identified on mammography. A negative report may reinforce clinical impression. Adenosis and dense breasts may obscure an underlying neoplasm. False positive reports average 6 to 10%. Patient will receive a letter notifying them of these results.
== END 2024-10-26 00:50 ==
PROVIDERS: PCP Nurse Practitioner Family; Visit Provider Nurse Practitioner Family
DX: Z12.31 Encounter for screening mammogram for malignant neoplasm of breast (principal); R92.323 Mammographic fibroglandular density, bilateral breasts
CPT/HCPCS: 77063; 77067

== ENCOUNTER 2025-03-18 09:46 | Outpatient (CLI) | payer MEDICARE, OTHER, SELFPAY ==
[2025-03-18 12:30] LABS: Abs Immature Grans 0.01 10^3/uL (0.0-0.06); HCT 42.3 % (36.0-46.0); HGB 13.9 g/dL (11.2-15.7); Immature Grans % 0.2 %; MCH 29.9 pg (27.0-33.0); MCHC 32.9 % (32.0-36.0); MCV 91 fL (80-95); MPV 10.0 fL (8.0-11.0); Platelet Count 274 10^3/uL (130-400); RBC 4.65 10^6/uL (3.93-5.22); RDW 12.7 % (11.7-14.6); RDW-SD 41.3 fL; WBC 5.67 10^3/uL (4.4-10.8)
[2025-03-18 12:45] LABS: ALT 28 U/L (14-59); AST 24 U/L (15-37); Albumin 3.7 g/dL (3.4-5.0); Alkaline Phosphatase 116 U/L (46-116); Anion Gap 5.8 mmol/L (3-11); BUN 14 mg/dL (7-18); Bilirubin, Total 0.8 mg/dL (0.2-1.0); CO2 31.2 mmol/L (21.0-32.0); Calcium 9.3 mg/dL (8.5-10.1); Chloride 102 mmol/L (98-107); Estimated GFR 66.67 (mL/min/1.73m2); Glucose 127 mg/dL (74-106); Potassium 4.0 mmol/L (3.5-5.1); Sodium 139 mmol/L (136-145); Total Protein 8.6 g/dL (6.4-8.2)
== END 2025-03-18 09:47 | disposition home or self-care (01) ==
LOC: LOS 09:47
PROVIDERS: PCP Nurse Practitioner Family; Referring Provider Nurse Practitioner Family; Visit Provider Nurse Practitioner Family
DX: R10.9 Unspecified abdominal pain (principal)
CPT/HCPCS: 36415; 80053; 85025

== ENCOUNTER 2025-03-23 12:49 | Outpatient (CLI) | payer MEDICARE, OTHER, SELFPAY ==
--- NOTE | 2025-03-23 05:45 | DI.CT_ITS ---
Exam(s) CT ABDOMEN PELVIS WO EXAM: CT ABDOMEN PELVIS WO CLINICAL HISTORY: evaluate pathology R10.9 ABD PAIN. TECHNIQUE: Imaging Protocol: Axial computed tomography images with coronal and sagittal reformatted images were created and reviewed. COMPARISON: US US SOFT TISS ABD WALL/LOW BACK from 08/16/2024 FINDINGS: There is artifact from the patient's bilateral total hip arthroplasties. ABDOMEN: Lung Bases: Mild cardiomegaly and mild coronary artery calcification. Liver: Normal density. No measurable mass. Gallbladder and biliary tract: Gallstones are present. There is no biliary ductal dilatation. Pancreas: Normal density, no abnormal calcifications or inflammatory process. Spleen: Normal. Kidneys: Normal size, contour and axis.There are few tiny nonobstructing stones in the right kidney. No masses seen. Adrenal glands: No mass is seen. Lymph nodes: Within normal limits. Abdominal Aorta: Abdominal portion non-dilated. Atherosclerotic calcification is present. PELVIS: Bladder:Symmetric distention, no gross wall thickening. Bowel: There are few diverticula in the colon but no evidence of acute diverticulitis. There is no evidence of bowel wall thickening or bowel obstruction. No hiatal hernia is seen on this examination. There is no evidence of appendicitis. Peritoneal cavity: No ascites, collection or mesenteric inflammatory response. No free air. Reproductive organs: Unremarkable as visualized. Bones: Within normal limits. The patient has bilateral total hip arthroplasties. There is a right convex lumbar scoliosis. Soft Tissues: Within normal limits. IMPRESSION: 1. There is no evidence of a hiatal hernia on this examination. 2. There is no acute abdominal or pelvic process. 3. Cholelithiasis. No biliary ductal dilatation. 4. Right nephrolithiasis. No obstructive uropathy. RADIATION DOSE DELIVERED: 817.58mGy.cm Total DLP DATA REPOSITORY: All CT scans at this facility are submitted to the National Radiology Data Registry (NRDR) Dose Index Registry (DIR) with the [employer] (ACR). RADIATION OPTIMIZATION: All CT scans at this facility use at least one of these dose optimization techniques: automated exposure control; mA and/or kV adjustment per patient size (includes targeted exams where dose is matched to clinical indication); or iterative reconstruction.
[2025-03-23] MEDS: Barium Sulfate 2% W/V-Creamy Vanilla Smoothie 450 ML BTL PO (08:22)
== END 2025-03-23 13:09 ==
LOC: DI 12:49
PROVIDERS: PCP Nurse Practitioner Family; Visit Provider Nurse Practitioner Family
DX: R10.9 Unspecified abdominal pain (principal); K80.80 Other cholelithiasis without obstruction; N20.0 Calculus of kidney
CPT/HCPCS: 74176

== ENCOUNTER → 2025-04-11 08:54 | Outpatient (BNVA) | payer MEDICARE, OTHER, SELFPAY | PROVIDERS: PCP Nurse Practitioner Family; Referring Provider Nurse Practitioner Family; Visit Provider Surgery | DX: R10.84 Generalized abdominal pain (principal); R14.0 Abdominal distension (gaseous) | CPT/HCPCS: 99214 ==

== ENCOUNTER 2025-04-11 18:00 | Outpatient (REF) | payer MEDICARE, OTHER, SELFPAY ==
[2025-04-15 13:21] LABS: Helicobacter pylori Ag, Feces Negative (Negative)
== END 2025-04-12 10:12 | disposition home or self-care (01) ==
LOC: LBN 18:00
PROVIDERS: PCP Nurse Practitioner Family; Visit Provider Surgery
DX: R10.9 Unspecified abdominal pain (principal)
CPT/HCPCS: 87338

== ENCOUNTER 2025-04-20 03:22 | Outpatient (CLI) | payer MEDICARE, OTHER, SELFPAY ==
--- NOTE | 2025-04-20 05:45 | DI.US_ITS ---
Exam(s) US ABDOMEN LIMITED EXAM: US ABDOMEN LIMITED CLINICAL HISTORY: Abd pain,? cholelithiasis on CT,R10.9 TECHNIQUE: Ultrasound of the right upper quadrant performed using standard protocol. COMPARISON: CT CT ABDOMEN PELVIS WO from 03/23/2025 FINDINGS: LIVER: Normal size. Slightly increasedechogenicity, consistent with mild hepatic steatosis.. No focal liver lesions are seen.. GALLBLADDER: A few small stones are noted.. No evidence of wall thickening. No pericholecystic fluid identified. KELLY'S SIGN: Negative. BILIARY SYSTEM: No intrahepatic or extrahepatic biliary ductal dilation. RIGHT KIDNEY: Normal size. No evidence of renal calculi. No evidence of hydronephrosis. No suspicious renal mass. No cyst identified. PANCREAS: Normal where visualized. ABDOMINAL AORTA AND IVC: Visualized portions normal caliber. ASCITES: None seen. IMPRESSION: No few small stones are noted in the gallbladder. No wall thickening or biliary dilatation. The liver shows mild hepatic steatosis. DATA REPOSITORY:
== END 2025-04-20 03:42 ==
LOC: DI 03:23
PROVIDERS: PCP Nurse Practitioner Family; Visit Provider Surgery
DX: R10.9 Unspecified abdominal pain (principal)
CPT/HCPCS: 76705

== ENCOUNTER → 2025-05-09 07:52 | Outpatient (BNVA) | payer MEDICARE, OTHER, SELFPAY | PROVIDERS: PCP Nurse Practitioner Family; Referring Provider Nurse Practitioner Family; Visit Provider Surgery | DX: K80.20 Calculus of gallbladder without cholecystitis without obstruction (principal) | CPT/HCPCS: 99215 ==

== ENCOUNTER 2025-05-24 08:43 | Day surgery (SDC) | payer MEDICARE, OTHER, SELFPAY ==
--- NOTE | 2025-05-23 14:35 | PDOC.DSDIS_ITS ---
Date of service: 05/23/25 Discharge Plan Disposition Patient Disposition: Home Condition: Good Discharge Details Reason For Visit: cholecystectomy Attending Provider: Suman Akins Primary Care Provider: Maria R Rodriguez Home Meds and New Rx's Prescriptions: Continued carboxymethylcellulose sodium [Refresh Tears] 0.5 % drops 1 drp ophthalmic (eye) BID calcium carbonate 600 mg calcium (1,500 mg) tablet 600 mg PO DAILY atenolol 100 mg tablet 100 mg PO BID valsartan 320 mg tablet 320 mg PO DAILY amlodipine 5 mg tablet 5 mg PO DAILY omeprazole 20 mg capsule,delayed release(DR/EC) 20 mg PO BID Qty: 180 3RF multivitamin Tablet 1 tab PO DAILY metronidazole 0.75 % gel 1 applic topical DAILY lidocaine 5 % adhesive patch,medicated 1 patch topical DAILY Rx Instructions: leave on most painful area for up to 12 hrs atorvastatin 10 mg tablet 20 mg PO DAILY ibuprofen 600 mg tablet 600 mg PO TID PRN (Reason: pain) Qty: 90 3RF Discharge Instructions Instructions: Cholecystectomy, Laparoscopic Surgery Additional Instructions: Amaris was great seeing you today, and hope you make a quick and uneventful recovery as you transition home. We are able to get your gallbladder out with a camera just as we discussed beforehand. Everything went very smoothly. Hopefully this will relieve your symptoms, and provide you some long-term durable protection from gallstones. As we have discussed, be a little bit careful as you get back to your regular self. You should be up and walking around, getting a little bit of basic exercise every day. Keep your lifting less than a gallon of milk, will check up and see how things are going in the office. I provided a prescription for a medication called tramadol if you need that for pain. As I mentioned in the preoperative area, alternating Tylenol and ibuprofen afterwards is also a very useful strategy. Ice packs will also help over the incisions. If you need anything at all, please do not hesitate to call, otherwise look forward to seeing in the office. 1. Resume all of your regular medications. 2. Use ice packs over the incisions to help with pain and swelling after surgery. 3. Alternate [id number] Tylenol and ibuprofen every 6 hours for the first 2 days. Then use them as you need them. Use the prescription for tramadol if you need that for more severe pain. 4. Leave bandage in place for 24 hours, then remove. 5. Shower with warm soapy water. Pat dry. Use a bandaid if needed to protect your clothing. 6. No soaking or tub baths until I see you in the office. 7. No heavy lifting until I see you in the office. 8.Call the office (or go directly to the emergency room after hours) if you notice any of the following: Develop chills (warm to touch), or if you have a thermometer and your temperature is above 101 Difficulty breathing or difficultly swallowing Persistent vomiting Any bleeding – exceeding one tablespoon 9. Call your physician if the site where your intravenous was started becomes red, swollen, painful, and warm to touch. Stand Alone Forms: Anesthesia Discharge Inst., Dylan Castañeda (DSU), Portal Information Referrals: Suman Akins MD [ [facility] STAFF PHYSICIAN, Surgery] - 06/06/25 8:00 am Activity:: no heavy lifting Remove Dressings/Wound Care:: 24 hours Shower/Bathe:: 24 hours Diet:: As Tolerated Discharge Orders Discharge Orders: Discharge Order (Routine); Ordered 05/23/25 Ordered By: Suman Akins DS: Diagnosis Discharge Diagnosis (1) Cholelithiasis: Status: Acute Asessment and Plan: Status post laparoscopic cholecystectomy; outpatient postoperative follow-up
--- NOTE | 2025-05-23 14:37 | W.PM.OP ---
Operative Note Operative Note PRE-OP DIAGNOSIS: biliary colic POST-OP DIAGNOSIS: other (Chronic cholecystitis) PROCEDURE: laparoscopic cholecystectomy SURGEON: Suman Akins MAIL TRUCK DRIVER: Hina Correa ANESTHESIA TYPE: General LMA/ETT Refer to Anesthesia Record ESTIMATED BLOOD LOSS: 25 PATHOLOGY: other (Gallbladder) COMPLICATIONS: None Patient was transported to: PACU Patient's condition: stable Indications: Amaris is a 75-year-old woman with cholelithiasis and symptomatic biliary colic. Findings: Adhesions of the gallbladder body and cystic neck consistent with chronic cholecystitis Procedure Description: After satisfactory induction of general anesthesia, I prepped and draped the abdomen in usual fashion. Next, I began with a periumbilical incision. I dissected down to the fascia with a hemostat. I then established pneumoperitoneum under the direct vision of the laparoscope using an optical viewing port. The peritoneum was then insufflated. Amaris was placed in the left side down reverse Trendelenburg positioning. Another 5 mm port was placed in the right anterior axillary line, and the 5 mm umbilical port was upsized to 12 mm. Camera was brought back to this position, and 2 more 5 mm ports were placed. 1 in the right mid abdomen, the other in the mid epigastrium. I then grasped the gallbladder fundus and elevated cephalad. I began by dissecting the gallbladder infundibulum. There were dense adhesions of the greater omentum up onto the main body of the gallbladder extending down onto the cystic neck. With the assistance of indocyanine green, I worked in a lateral to medial fashion. Once I skeletonized the cystic duct and cystic artery, with a satisfactory critical view of safety, I doubly clipped and divided them. I then used electrocautery to dissect the gallbladder off the gallbladder fossa. I passed the gallbladder into an Endo Catch bag and removed it by way of the umbilical site. I examined the surgical field. It was hemostatic. The umbilical site was then closed with a Hunter Solorzano wound closure device. The 5 mm ports in the right mid abdomen were removed. There was no bleeding. The pneumoperitoneum was then all released, the remaining 5 mm port was removed prior to closure with subcuticular stitches. Band-Aids were applied, Amaris was awoken from the anesthetic, extubated, transferred to the recovery unit. Date of Procedure: 05/24/25
[2025-05-24] VITALS (34 sets, daily range): BP systolic 125–168; BP diastolic 65–99; PULSE 51–80; RESP 13–25; TEMP 36.2–36.6; O2SAT 92–99; BMI 33.0
--- NOTE | 2025-05-24 08:43 | ANES.PREOP_ITS ---
General Info Date of Service Date Performed: 05/24/25 Height: 5 ft 6 in Weight: 92.703 kg Body Mass Index (BMI): 33.0 Surgical Procedure: Operation Date: 05/24/25 09:10 Proposed Procedure Side Surgeon p Cholecystectomy Laparoscopic Suman Akins MD Meds Allergies and Home Medications Allergies Allergy/AdvReac Type Severity Reaction Status Date / Time Iodinated Contrast Media Allergy Intermediate Hives Verified 05/24/25 09:34 diclofenac AdvReac Unknown Diarrhea Verified 05/24/25 09:34 mirabegron AdvReac Unknown Unknown Verified 05/24/25 09:34 chlorthalidone AdvReac Unknown Verified 05/24/25 09:34 Home Medication Medication Instructions Recorded amlodipine 5 mg tablet 5 mg PO DAILY 07/12/22 valsartan 320 mg tablet 320 mg PO DAILY 07/12/22 lidocaine 5 % topical patch 1 patch topical DAILY 07/21 03/12 metronidazole 0.75 % topical gel 1 applic topical SANAM Y 08/07/22 multivitamin 1 tab PO DAILY 08/07/22 atenolol 100 mg tablet 100 mg PO BID 09/09/22 atorvastatin 10 mg tablet 20 mg PO DAILY 09/09/22 calcium carbonate 600 mg PO DAILY 09/09/22 carboxymethylcellulose sodium 0.5 1 drp ophthalmic (ey e) BID 09/09/22 % eye drops (Refresh Tears) ibuprofen 600 mg tablet 600 mg PO TID PRN pain #90 t abs 07/27/24 omeprazole 20 mg capsule,delayed 20 mg PO BID #180 cap s 04/08/25 release Current Visit Medications: Current Medications Generic Name Dose Route Start Last Admin Trade Name Mengq PRN Reason Stop Dose Admin Acetaminophen 1,000 mg 05/24/25 06:00 Acetaminophen 500 Mg Tab PO 05/24/25 23:59 PREOP ANA Celecoxib 200 mg 05/24/25 06:00 Celecoxib 200 Mg Cap PO 05/24/25 23:59 PREOP ANA Gabapentin 300 mg 05/24/25 06:00 Gabapentin 300 Mg Cap PO 05/24/25 23:59 PREOP ANA Hydromorphone HCl 0.2 mg 05/23/25 14:38 Hydromorphone 2 Mg/Ml Syr IVP 06/22/25 14:37 Q1H PRN PRN Ringer's Solution 1,000 mls @ 80 mls/hr 05/24/25 06:00 IV 05/24/25 23:59 INFUSION ANA Cefazolin Sodium/Dextrose 2 gm in 50 mls @ 100 mls/hr 05/24/25 06:00 Ancef Duplex IVPB 05/24/25 23:59 PREOP ANA IV Miscellaneous Supplies 1 each 05/24/25 06:00 Iv Access IV 05/24/25 23:59 DIRECTED ANA Indocyanine Green 5 mg 05/24/25 06:00 Indocyanine Green 25 Mg Vial IVP 05/24/25 23:59 DIRECTED ANA Sodium Chloride 0 ml 05/24/25 06:00 Normal Saline Flush 10 Ml Syr IV 05/24/25 23:59 PRN PRN Sodium Chloride 0 ml 05/24/25 06:00 Normal Saline 10 Ml Vial IJ 05/24/25 23:59 DIRECTED PRN Sterile Water 0 ml 05/24/25 06:00 Water,Injection,Sterile 10 Ml Vial IJ 05/24/25 23:59 DIRECTED PRN Tramadol HCl 50 mg 05/23/25 14:38 Tramadol 50 Mg Tab PO 06/22/25 14:37 Q6H PRN PRN Pain PFSH Active Problems Active Problems: Problem Status Onset Code Cholelithiasis Acute K80.20 Chronic pain syndrome Chronic G89.4 Mechanical low back pain Acute M54.59 Lumbar spondylosis Acute M47.816 Lumbar spinal stenosis Acute M48.061 Hypertension Chronic I10 Osteoarthritis Chronic M19.90 Interstitial cystitis Chronic N30.10 Rosacea Chronic L71.9 Peripheral neuropathy Chronic G62.9 GERD (gastroesophageal reflux disease) Chronic K21.9 Obesity Chronic E66.9 Bilateral primary osteoarthritis of knee Chronic M17.0 Medical History Medical History Diplopia (~05/2022) Chronic low back pain SI (sacroiliac) joint dysfunction intraarticular injection: 05/22/23 Carpal tunnel syndrome, bilateral Parathyroid adenoma S/p parathyroidectomy Primary hyperparathyroidism S/p parathyroidectomy Surgical History Surgical History History of total right hip replacement (07/27/24) H/O radiofrequency ablation (RFA) of nerve of lumbar spine (10/24/22) H/O removal of cyst (04/2019) Right side mid-back H/O removal of neck cyst Status post left hip replacement (12/29/23) Status post right knee replacement (10/21/18) S/P parathyroidectomy (1995) Hx of colonoscopy Hx of appendectomy Tobacco Smoking/Tobacco Use Status: Former Tobacco Use Passive smoking exposure: Yes Second hand exposure: Yes Alcohol Alcohol Intake: never Substance Use Substance use: Never Substance use type: does not use Vital Signs and Lab Results Vital Signs Most Recent Vital Signs in EMR: Temp Pulse Resp BP Pulse Ox 36.2 C L 80 16 168/92 H 98 05/24/25 09:10 05/24/25 09:10 05/24/25 09:10 05/24/25 09:10 05/24/25 09:10 Imaging and Studies Imaging and Studies Study information below may be from another EMR and interpreted by another provider. Please see original notes in EMR for more complete details. Echocardiogram Summary: echocardiogram from 01/25/2019 which as per read by Dr. Newton which states the following: Left ventricular systolic function is normal. Visually estimated ejection fraction equals 65%. Mitral valve is normal...Trace mitral regurgitation...Trace tricuspid regurgitation...Aortic valve is tricuspid... Mild aortic valve thickening... Mild aortic regurgitation Anesthesia Assessment and Plan Anesthesia History Personal History: Delayed Emergence Family History: No Family History of Anesthesia Complications Exercise Tolerance Exercise Tolerance: Metabolic Equivalents<4 Pertinent Negatives Pertinent Negatives: No Symptoms of GERD, No Major Cardiovascular Symptoms or Complaints (noted murmur, asymptomatic), No Major Pulmonary Symptoms or Complaints and No History of CVA/TIA Cardiac & Pulmonary Exam Cardiac Exam: Heart Murmur Present and Known Innocent Murmur Pulmonary Exam: Clear Bilateral Breath Sounds and No cough or Cold Implantable Cardiac Device Does patient have a Pacemaker or an ICD?: No Airway Exam Known Difficult Airway: No Mallampati Class: 2 Mouth Opening: Normal (> 3cm) Thyromental Distance: Greater than 3 cm Neck Range of Motion: Full ROM Neck Circumference: Normal Teeth Condition: Normal Dentition ASA Classification ASA Score: ASA 2 Emergency Case?: No NPO Status NPO Status: NPO Clears >2 hours, Solids >8 hours Anesthesia Plan Resuscitation Status: Full Code Anesthesia Technique: General Anesthesia Airway Planned: Endotracheal Tube Monitors Used: Standard Monitors
[2025-05-24] MEDS: Acetaminophen 500 MG TAB 1000 MG PO (09:36)
[2025-05-24] MEDS: Celecoxib 200 MG CAP PO (09:37)
[2025-05-24] MEDS: Gabapentin 300 MG CAP PO (09:37)
[2025-05-24] MEDS: Lactated Ringers 1,000 ML 80 ML IV (09:45)
[2025-05-24] MEDS: Water,Injection,Sterile 10 ML VIAL IJ (09:50)
[2025-05-24] MEDS: Normal Saline Flush 10 ML SYR IV (09:50)
[2025-05-24] MEDS: Indocyanine green 25 MG VIAL 5 MG IVP (09:50)
[2025-05-24] MEDS: ceFAZolin 2 GM/50 ML BAG IVPB (10:30)
--- NOTE | 2025-05-24 11:42 | GB_PTH ---
PATIENT: Amaris Casper LOC: [facility] U#:[id number] AGE/SX: 75/F ROOM: RE05/24/[address]: Suman Akins MD : 1950 BED: DIS: 05/24/2025 SPEC #: [id number] RECD: 05/24/25 12:14 STATUS: [facility] #: [id number] TALI: 05/24/25 11:[address]: Suman Akins DEPT: Surgical Specimen RECD BY: Jenifer Jones ENTERED: 05/24/25 12:15 SP TYPE: GB OT DR: JAMSHID Begum Tissues: 1 - GALLBLADDER Procedures: GROSS AND MICRO LEVEL 3 Comments: [id number]
--- NOTE | 2025-05-24 12:00 | RT.EKG_ITS ---
APPROVED REPORT Exam: Resting ECG Reason for Exam: Questionable Afib Patient Location: O HR:60 bpm ECG Measurements Heart Rate 60 AXIS W[place] [id number] P [id number] QRSd 106 QRS -31 QT 457 T -7 QTc 456 Conclusion Atrial fibrillation...? atrial activity Left axis deviation...QRS axis (-30,-90)
[2025-05-24] MEDS: Bupivacaine 0.25% Pres-Free W/EPI 30 ML VIAL (12:12)
--- NOTE | 2025-05-24 14:09 | ANES.POST_ITS ---
Postoperative Evaluation Date, Time and Location Date Performed: 05/24/25 Time Performed: 14:15 Patient Location: Day Surgery Unit Vital Signs Most Recent Imported Vital Signs: Most Recent Vital Signs Temp Pulse Resp BP Pulse Ox 36.6 C 62 15 145/99 H 93 05/24/25 13:11 05/24/25 13:11 05/24/25 13:11 05/24/25 13:11 05/24/25 13:11 Pain Score Most Recent Pain Score: Most Recent Pain Score Pain Level 1 05/24/25 13:12 Assessment Mental Status: Awake (Alert & Oriented to Patient Baseline) Airway and Respiratory Function: Patent airway with normal (patient baseline) respiratory exam Cardiovascular Function: Hemodynamically Stable Hydration Status: Adequately Hydrated Nausea & Vomiting: No Nausea or Vomiting Pain: Pt. Denies Any Pain Peripheral Nerve Block: Patient did not receive a nerve block Teaching Patient Teaching: Advised to seek followup for the following concerns (See e xplanation) Concerns: New Onset Atrial Fibrillation Postoperative Comments:: Discharge note and EKG faxed to [facility] per patient request.
== END 2025-05-24 15:00 | disposition home or self-care (01) ==
LOC: SUR 08:43
PROVIDERS: PCP Nurse Practitioner Family; Visit Provider Surgery
PROC: 0FT44ZZ Resection of Gallbladder, Percutaneous Endoscopic Approach (ICD-10-PCS; CPT 47562; principal; 2025-05-24 09:00)
DX: K80.20 Calculus of gallbladder without cholecystitis without obstruction (principal)
CPT/HCPCS: 47562; 88304; 93005; 93010; J0131; J0690; J1100; J1171; J1885; J2003; J2405; J2704; J3475

== ENCOUNTER → 2025-06-06 07:48 | Outpatient (BNVA) | payer MEDICARE, OTHER, SELFPAY | PROVIDERS: PCP Nurse Practitioner Family; Referring Provider Nurse Practitioner Family; Visit Provider Surgery | DX: Z09 Encounter for follow-up examination after completed treatment for conditions other than malignant neoplasm (principal); K80.20 Calculus of gallbladder without cholecystitis without obstruction | CPT/HCPCS: 99024 ==